=== PATIENT | male | born 1940 | race Caucasian/White ===

== ENCOUNTER 2022-03-11 15:25 | Inpatient (IN) | payer MEDICARE, BC, OTHER ==
[~2022-03-11] VITALS: Ht 175.3 cm; Wt 86.3 kg
[2022-03-11] MEDS ORDERED: MORPHINE 2 MG/ML 1ML VIAL IV PRN (15:50)
[2022-03-11 16:08] LABS: BASO % 0.1 % (0.0-1.0); EOS # 0.1 10^3/uL (0.0-0.5); EOS % 1.4 % (0.0-3.0); HEMATOCRIT 30.4 % (42.0-52.0); HEMOGLOBIN 11.3 g/dl (13.5-17.5); LYMPH # 0.8 10^3/uL (1.5-5.0); LYMPH % 11.5 % (24.0-44.0); MEAN CORPUSCULAR HEMOGLOBIN 32.3 pg (27.0-33.0); MEAN CORPUSCULAR VOLUME 86.9 fl (80.0-96.0); MONO % 13.8 % (2.0-8.0); NEUTROPHILS % 72.2 % (36.0-66.0); PLATELET COUNT, AUTOMATED 172 10^3/uL (150-450)
[2022-03-11] MEDS ORDERED: ISOVUE-370 76% 100ML VIAL As Ordered ONE (16:08)
[2022-03-11] MEDS ORDERED: FURO40TA2 (16:14)
[2022-03-11] MEDS ORDERED: ALLO100T (16:14)
[2022-03-11] MEDS ORDERED: METF750T36 (16:14)
[2022-03-11] MEDS ORDERED: THIA100T7 PO ×2 (16:14→21:00)
[2022-03-11] MEDS ORDERED: ATOR40TA75 (16:14)
[2022-03-11] MEDS ORDERED: ELIQ5TAB (16:14)
[2022-03-11] MEDS ORDERED: DILT300C21 (16:14)
[2022-03-11] MEDS ORDERED: TELM1TAB16 (16:14)
[2022-03-11] MEDS ORDERED: CARV25TA (16:14)
[2022-03-11] MEDS ORDERED: CALC-218 PO (16:14)
[2022-03-11] MEDS ORDERED: D 1010002 PO (16:14)
[2022-03-11] MEDS ORDERED: CIDA500T2 PO (16:14)
[2022-03-11] MEDS ORDERED: CENTTAB16 PO (16:14)
[2022-03-11] MEDS ORDERED: OMEP-173 (16:14)
[2022-03-11 16:20] LABS: INR 1.29; PROTHROMBIN TIME 16.5 SECONDS (12.7-14.5)
[2022-03-11 16:21] LABS: PARTIAL THROMBOPLASTIN TIME 37.1 SECONDS (25.9-37.0)
[2022-03-11 16:24] LABS: MEAN CORPUSCULAR HGB CONC 37.2 g/dl (32.0-36.5)
[2022-03-11 16:40] LABS: CK-MB VALUE MASS 2.9 NG/ML (<3.6); MB/CK RELATIVE INDEX 2.74 (< OR =4)
[2022-03-11 16:53] LABS: ALBUMIN 3.2 GM/DL (3.2-5.2); BILIRUBIN,DIRECT 0.5 MG/DL (0.0-0.2); BILIRUBIN,TOTAL 1.1 MG/DL (0.2-1.0); CALCIUM LEVEL 8.6 MG/DL (8.8-10.2); CREATININE FOR GFR 1.66 MG/DL (0.70-1.30); GLOMERULAR FILTRATION RATE 42.6 (>35); TOTAL PROTEIN 6.3 GM/DL (6.4-8.2)
[2022-03-11] MEDS ORDERED: KCL 10MEQ/100ML SWI (KRUN) 10 MEQ in IV 1 EA IV ONE (17:15)
[2022-03-11] MEDS ORDERED: POTASSIUM CHLORIDE 10MEQ SR TABLET PO ONE (17:15)
[2022-03-11 17:19] LABS: MAGNESIUM LEVEL 1.5 MG/DL (1.8-2.4)
[2022-03-11 17:29] LABS: RSV AMPLIFICATION NEGATIVE (NEGATIVE)
[2022-03-11] MEDS ORDERED: LORazepam 2 MG TAB PO PRN (17:40)
[2022-03-11] MEDS ORDERED: MAGNESIUM OXIDE 400MG TAB (MAG-OX) PO ONE (18:20)
[2022-03-11] MEDS ORDERED: NORCO, ANEXSIA 5/325MG TABLET (HYDROcodone/ACETAMINOPHEN) PO PRN ×2 (20:40)
[2022-03-11] MEDS ORDERED: DEXTROSE 50% 50 ML SYRINGE IV PRN (20:45)
[2022-03-11] MEDS ORDERED: GLUCAGON INJ 1MG VIAL SC PRN (20:45)
[2022-03-11] MEDS ORDERED: GLUCOSE 4GM CHEW TABLET PO PRN (20:45)
[2022-03-11] MEDS ORDERED: OMEP1CAP73 PO (21:00)
[2022-03-11] MEDS ORDERED: METF750T36 PO (21:00)
[2022-03-11] MEDS ORDERED: ATOR40TA75 PO (21:00)
[2022-03-11] MEDS ORDERED: TELM1TAB16 PO (21:00)
[2022-03-11] MEDS ORDERED: DILT300C21 PO (21:00)
[2022-03-11] MEDS ORDERED: VITMTA PO (21:00)
[2022-03-11] MEDS ORDERED: HOME MED LIST COMPLETE! XX SCH (21:00)
[2022-03-11] MEDS ORDERED: ALLO10TA PO (21:00)
[2022-03-11] MEDS ORDERED: CARV25TA PO (21:00)
[2022-03-11] MEDS ORDERED: FURO40TA2 PO (21:00)
[2022-03-11] MEDS ORDERED: ELIQ5TAB PO (21:00)
[2022-03-11 22:40] LABS: CALCIUM LEVEL 8.8 MG/DL (8.8-10.2); CREATININE FOR GFR 1.48 MG/DL (0.70-1.30); GLOMERULAR FILTRATION RATE 48.7 (>35)
[2022-03-11] MEDS: THIAMINE 100 MG TAB PO SCH (22:59)
[2022-03-11] MEDS: ACETAMINOPHEN 500 MG TAB PO SCH (22:59)
[2022-03-11] MEDS: traMADol 50 MG TAB PO SCH (22:59)
[2022-03-12 00:10] VITALS: BP_SYST 148; BP_DIAS 56; BP_DIAS 76
[2022-03-12] MEDS: INSULIN LISPRO (NovoLOG) PER UNIT SC SCH ×5 (00:25→21:00)
[2022-03-12 04:00] VITALS: BP 127/75
[2022-03-12 06:03] LABS: BASO % 0.5 % (0.0-1.0); EOS # 0.2 10^3/uL (0.0-0.5); EOS % 3.8 % (0.0-3.0); HEMATOCRIT 30.9 % (42.0-52.0); MEAN CORPUSCULAR HEMOGLOBIN 31.3 pg (27.0-33.0); MEAN CORPUSCULAR HGB CONC 35.6 g/dl (32.0-36.5); MEAN CORPUSCULAR VOLUME 87.8 fl (80.0-96.0); MONO # 0.8 10^3/uL (0.0-0.8); MONO % 14.2 % (2.0-8.0); NEUTROPHILS # 3.5 10^3/uL (1.5-8.5); NEUTROPHILS % 63.4 % (36.0-66.0); PLATELET COUNT, AUTOMATED 156 10^3/uL (150-450); RED BLOOD COUNT 3.52 10^6/uL (4.30-6.10); WHITE BLOOD COUNT 5.6 10^3/uL (4.0-10.0)
[2022-03-12 06:23] LABS: CALCIUM LEVEL 8.7 MG/DL (8.8-10.2); CREATININE FOR GFR 1.52 MG/DL (0.70-1.30); GLOMERULAR FILTRATION RATE 47.2 (>35); MAGNESIUM LEVEL 1.7 MG/DL (1.8-2.4); POTASSIUM SERUM 3.3 MEQ/L (3.5-5.1)
[2022-03-12] MEDS ORDERED: MAG SULF 1GM/100ML (MAG RUN) 1 GM in IV 1 EA IV ONE ×2 (07:00→08:00)
[2022-03-12] MEDS ORDERED: KCL 10MEQ/100ML SWI (KRUN) 10 MEQ in IV 1 EA IV SCH (07:00)
[2022-03-12 07:21] VITALS: BP 140/66
[2022-03-12] MEDS: MULTIVITAMINS/MINERALS THERAP 1 TAB PO SCH (08:18)
[2022-03-12] MEDS: traMADol 50 MG TAB PO SCH ×2 (08:18→21:23)
[2022-03-12] MEDS: ACETAMINOPHEN 500 MG TAB PO SCH ×2 (08:19→21:24)
[2022-03-12] MEDS: allopurinoL 100 MG TAB PO SCH (08:19)
[2022-03-12] MEDS: THIAMINE 100 MG TAB PO SCH ×2 (08:20→21:24)
[2022-03-12] MEDS: OMEPRAZOLE 20MG CAP PO SCH ×2 (08:20→21:24)
[2022-03-12] MEDS: APIXABAN 5 MG TAB (ELIQUIS) PO SCH ×2 (08:20→21:25)
[2022-03-12] MEDS: FOLIC ACID 1 MG TAB PO SCH (08:20)
[2022-03-12] MEDS: MAGNESIUM OXIDE 400MG TAB (MAG-OX) PO SCH ×2 (08:21→21:24)
[2022-03-12] MEDS: TELMISARTAN 20 MG TAB PO SCH (09:00)
[2022-03-12] MEDS: KCL 10MEQ/100ML SWI (KRUN) 10 MEQ in IV 1 EA IV SCH ×2 (09:29→10:42)
[2022-03-12 12:00] VITALS: BP 131/61
[2022-03-12 16:40] VITALS: BP 132/60
[2022-03-12 20:00] VITALS: BP 155/79
[2022-03-12] MEDS: ATORVASTATIN 20 MG TAB PO SCH (21:23)
[2022-03-13] VITALS (8 sets, daily range): BP systolic 91–161; BP diastolic 51–89
[2022-03-13 06:10] LABS: BASO # 0.1 10^3/uL (0.0-0.2); BASO % 0.7 % (0.0-1.0); EOS # 0.2 10^3/uL (0.0-0.5); EOS % 2.9 % (0.0-3.0); HEMATOCRIT 31.5 % (42.0-52.0); HEMOGLOBIN 11.3 g/dl (13.5-17.5); LYMPH # 1.1 10^3/uL (1.5-5.0); LYMPH % 14.8 % (24.0-44.0); MEAN CORPUSCULAR HGB CONC 35.9 g/dl (32.0-36.5); MEAN CORPUSCULAR VOLUME 89.2 fl (80.0-96.0); MONO # 0.8 10^3/uL (0.0-0.8); MONO % 10.9 % (2.0-8.0); NEUTROPHILS # 5.3 10^3/uL (1.5-8.5); NEUTROPHILS % 69.9 % (36.0-66.0); PLATELET COUNT, AUTOMATED 163 10^3/uL (150-450); RED BLOOD COUNT 3.53 10^6/uL (4.30-6.10); WHITE BLOOD COUNT 7.6 10^3/uL (4.0-10.0)
[2022-03-13 07:02] LABS: CALCIUM LEVEL 8.9 MG/DL (8.8-10.2); CREATININE FOR GFR 1.51 MG/DL (0.70-1.30); GLOMERULAR FILTRATION RATE 47.6 (>35); POTASSIUM SERUM 3.4 MEQ/L (3.5-5.1)
[2022-03-13] MEDS ORDERED: POTASSIUM CHLORIDE 10MEQ SR TABLET PO ONE (07:10)
[2022-03-13] MEDS: INSULIN LISPRO (NovoLOG) PER UNIT SC SCH ×4 (07:30→20:52)
[2022-03-13] MEDS ORDERED: POTASSIUM CHLORIDE 10MEQ SR TABLET PO SCH (09:00)
[2022-03-13] MEDS: THIAMINE 100 MG TAB PO SCH ×2 (09:14→20:56)
[2022-03-13] MEDS: allopurinoL 100 MG TAB PO SCH (09:14)
[2022-03-13] MEDS: MULTIVITAMINS/MINERALS THERAP 1 TAB PO SCH (09:14)
[2022-03-13] MEDS: FOLIC ACID 1 MG TAB PO SCH (09:14)
[2022-03-13] MEDS: APIXABAN 5 MG TAB (ELIQUIS) PO SCH ×2 (09:14→20:57)
[2022-03-13] MEDS: OMEPRAZOLE 20MG CAP PO SCH ×2 (09:14→20:56)
[2022-03-13] MEDS: MAGNESIUM OXIDE 400MG TAB (MAG-OX) PO SCH ×2 (09:15→20:56)
[2022-03-13] MEDS: ACETAMINOPHEN 500 MG TAB PO SCH ×2 (09:15→20:57)
[2022-03-13] MEDS: TELMISARTAN 20 MG TAB PO SCH (09:16)
[2022-03-13] MEDS: traMADol 50 MG TAB PO SCH ×2 (09:16→20:57)
[2022-03-13] MEDS: CARVedilol 6.25 MG TAB PO SCH ×2 (13:08→17:42)
[2022-03-13] MEDS: FUROSEMIDE 40 MG TAB PO SCH (16:11)
[2022-03-13] MEDS: ATORVASTATIN 20 MG TAB PO SCH (20:57)
[2022-03-14] VITALS (8 sets, daily range): BP systolic 116–144; BP diastolic 57–89
[2022-03-14] MEDS: CARVedilol 6.25 MG TAB PO SCH ×2 (00:46→06:24)
[2022-03-14 06:06] LABS: BASO % 0.6 % (0.0-1.0); EOS # 0.2 10^3/uL (0.0-0.5); EOS % 3.2 % (0.0-3.0); HEMATOCRIT 31.5 % (42.0-52.0); HEMOGLOBIN 10.9 g/dl (13.5-17.5); LYMPH # 1.1 10^3/uL (1.5-5.0); LYMPH % 21.4 % (24.0-44.0); MEAN CORPUSCULAR HEMOGLOBIN 32.1 pg (27.0-33.0); MEAN CORPUSCULAR HGB CONC 34.6 g/dl (32.0-36.5); MEAN CORPUSCULAR VOLUME 92.6 fl (80.0-96.0); MONO # 0.7 10^3/uL (0.0-0.8); MONO % 14.9 % (2.0-8.0); NEUTROPHILS # 2.9 10^3/uL (1.5-8.5); NEUTROPHILS % 59.1 % (36.0-66.0); PLATELET COUNT, AUTOMATED 140 10^3/uL (150-450)
[2022-03-14 06:52] LABS: CALCIUM LEVEL 8.2 MG/DL (8.8-10.2); CREATININE FOR GFR 1.54 MG/DL (0.70-1.30); GLOMERULAR FILTRATION RATE 46.5 (>35); POTASSIUM SERUM 4.3 MEQ/L (3.5-5.1)
[2022-03-14 07:25] LABS: MAGNESIUM LEVEL 2.8 MG/DL (1.8-2.4)
[2022-03-14] MEDS: INSULIN LISPRO (NovoLOG) PER UNIT SC SCH ×4 (07:30→21:00)
[2022-03-14] MEDS: OMEPRAZOLE 20MG CAP PO SCH ×2 (08:16→20:09)
[2022-03-14] MEDS: ACETAMINOPHEN 500 MG TAB PO SCH ×2 (08:16→20:08)
[2022-03-14] MEDS: traMADol 50 MG TAB PO SCH ×2 (08:17→20:09)
[2022-03-14] MEDS: MULTIVITAMINS/MINERALS THERAP 1 TAB PO SCH (08:17)
[2022-03-14] MEDS: allopurinoL 100 MG TAB PO SCH (08:17)
[2022-03-14] MEDS: APIXABAN 5 MG TAB (ELIQUIS) PO SCH ×2 (08:17→20:09)
[2022-03-14] MEDS: FOLIC ACID 1 MG TAB PO SCH (08:17)
[2022-03-14] MEDS: MAGNESIUM OXIDE 400MG TAB (MAG-OX) PO SCH ×2 (08:18→20:08)
[2022-03-14] MEDS: TELMISARTAN 20 MG TAB PO SCH (08:18)
[2022-03-14] MEDS: THIAMINE 100 MG TAB PO SCH (08:18)
[2022-03-14] MEDS: FUROSEMIDE 40 MG TAB PO SCH ×2 (08:18→17:17)
[2022-03-14] MEDS: CARVedilol 12.5 MG TAB PO SCH ×3 (11:57→23:34)
[2022-03-14] MEDS: ATORVASTATIN 20 MG TAB PO SCH (20:09)
[2022-03-15 04:06] VITALS: BP 129/60
[2022-03-15] MEDS: CARVedilol 12.5 MG TAB PO SCH (05:19)
[2022-03-15 06:52] LABS: BASO % 0.6 % (0.0-1.0); EOS # 0.1 10^3/uL (0.0-0.5); EOS % 1.9 % (0.0-3.0); HEMATOCRIT 29.9 % (42.0-52.0); HEMOGLOBIN 10.2 g/dl (13.5-17.5); LYMPH # 0.9 10^3/uL (1.5-5.0); LYMPH % 17.7 % (24.0-44.0); MEAN CORPUSCULAR HEMOGLOBIN 31.7 pg (27.0-33.0); MEAN CORPUSCULAR HGB CONC 34.1 g/dl (32.0-36.5); MEAN CORPUSCULAR VOLUME 92.9 fl (80.0-96.0); MONO # 0.7 10^3/uL (0.0-0.8); MONO % 13.6 % (2.0-8.0); NEUTROPHILS # 3.2 10^3/uL (1.5-8.5); NEUTROPHILS % 65.6 % (36.0-66.0); PLATELET COUNT, AUTOMATED 136 10^3/uL (150-450); RED BLOOD COUNT 3.22 10^6/uL (4.30-6.10); WHITE BLOOD COUNT 4.9 10^3/uL (4.0-10.0)
[2022-03-15 07:18] LABS: CREATININE FOR GFR 1.45 MG/DL (0.70-1.30); GLOMERULAR FILTRATION RATE 49.9 (>35)
[2022-03-15 07:19] LABS: CALCIUM LEVEL 8.9 MG/DL (8.8-10.2); POTASSIUM SERUM 4.4 MEQ/L (3.5-5.1)
[2022-03-15 07:27] VITALS: BP 139/68
[2022-03-15] MEDS: INSULIN LISPRO (NovoLOG) PER UNIT SC SCH (07:30)
[2022-03-15] MEDS: MAGNESIUM OXIDE 400MG TAB (MAG-OX) PO SCH (09:00)
[2022-03-15] MEDS: APIXABAN 5 MG TAB (ELIQUIS) PO SCH (09:05)
[2022-03-15 09:06] VITALS: BP 136/68
[2022-03-15] MEDS: OMEPRAZOLE 20MG CAP PO SCH (09:06)
[2022-03-15] MEDS: traMADol 50 MG TAB PO SCH (09:06)
[2022-03-15] MEDS: FOLIC ACID 1 MG TAB PO SCH (09:06)
[2022-03-15] MEDS: allopurinoL 100 MG TAB PO SCH (09:06)
[2022-03-15] MEDS: ACETAMINOPHEN 500 MG TAB PO SCH (09:07)
[2022-03-15] MEDS: FUROSEMIDE 40 MG TAB PO SCH (09:08)
[2022-03-15] MEDS: MULTIVITAMINS/MINERALS THERAP 1 TAB PO SCH (09:08)
[2022-03-15] MEDS: TELMISARTAN 20 MG TAB PO SCH (09:08)
[2022-03-15] MEDS ORDERED: TELM1TAB35 PO ×2 (10:38→11:41)
[2022-03-15] MEDS ORDERED: ACET500P3 PO ×2 (10:38→11:41)
[2022-03-15] MEDS ORDERED: AMLO1TAB25 PO ×2 (10:38→11:41)
[2022-03-15] MEDS ORDERED: TRAM50TA2 PO ×2 (10:39→11:42)
== END 2022-03-15 11:51 | disposition home or self-care (01) | DRG 309 ==
LOC: M ED 15:25 → M ED INP 17:38 → ENRESERV 21:07 → M PCU 03-12 00:09
PROVIDERS: ADMIT Internal Medicine Nephrology; ATTEND Internal Medicine Nephrology
DX: R00.1 Bradycardia, unspecified (principal); I50.32 Chronic diastolic (congestive) heart failure; I13.0 Hypertensive heart and chronic kidney disease with heart failure and stage 1 through stage 4 chronic kidney disease, or unspecified chronic kidney disease; E87.1 Hypo-osmolality and hyponatremia; I48.20 Chronic atrial fibrillation, unspecified; N18.30 Chronic kidney disease, stage 3 unspecified; K21.9 Gastro-esophageal reflux disease without esophagitis; I25.10 Atherosclerotic heart disease of native coronary artery without angina pectoris; I27.20 Pulmonary hypertension, unspecified; E78.5 Hyperlipidemia, unspecified; G20 Parkinson's disease; E11.22 Type 2 diabetes mellitus with diabetic chronic kidney disease; K22.2 Esophageal obstruction; E87.6 Hypokalemia; E83.42 Hypomagnesemia; N26.1 Atrophy of kidney (terminal); K57.90 Diverticulosis of intestine, part unspecified, without perforation or abscess without bleeding; M47.812 Spondylosis without myelopathy or radiculopathy, cervical region; M47.816 Spondylosis without myelopathy or radiculopathy, lumbar region; M47.814 Spondylosis without myelopathy or radiculopathy, thoracic region; N40.0 Benign prostatic hyperplasia without lower urinary tract symptoms; M85.89 Other specified disorders of bone density and structure, multiple sites; Z90.49 Acquired absence of other specified parts of digestive tract; Z95.5 Presence of coronary angioplasty implant and graft; Z87.891 Personal history of nicotine dependence; Z96.652 Presence of left artificial knee joint; Z79.01 Long term (current) use of anticoagulants; Z79.84 Long term (current) use of oral hypoglycemic drugs; Z79.899 Other long term (current) drug therapy; F10.129 Alcohol abuse with intoxication, unspecified